=== PATIENT | male | born 2000 | race Caucasian/White ===

== ENCOUNTER 2019-03-30 16:42 | Emergency (ER) | payer BC ==
[~2019-03-30] VITALS: Ht 172.7 cm; Wt 102.0 kg
[~2019-03-30 16:42] MED LIST: CYCL5TAB PO; IBUP-1542 PO; IBUP-1561 PO; ONDA4TAB8 PO
[2019-03-30 16:45] VITALS: Ht 172.7 cm; Wt 102.0 kg
[2019-03-30] MEDS ORDERED: KETOROLAC 15 MG INJ IM STA (18:04)
[2019-03-30] MEDS ORDERED: ACETAMINOPHEN 325 MG TAB PO ONE (18:30)
[2019-03-30] MEDS ORDERED: CYCLOBENZAPRINE 10 MG TAB PO ONE (19:30)
[2019-03-30 20:05] VITALS: BP 139/82; PULSE 68; RESP 18
== END 2019-03-30 20:06 | disposition home or self-care (01) ==
LOC: FTE 16:42
DX: J06.9 Acute upper respiratory infection, unspecified (principal); M54.5 Low back pain; D72.829 Elevated white blood cell count, unspecified
CPT/HCPCS: 36415; 80048; 81003; 85025; 96372; J1885; Z7502; Z7610